=== PATIENT | female | born 1980 | race Caucasian/White ===

== ENCOUNTER 2019-01-08 23:06 | Emergency (ER) | payer MEDICAID ==
[~2019-01-08] VITALS: Ht 160 cm; Wt 63.5 kg
[~2019-01-08 23:06] MED LIST: ALBU8HFA2 INH; AMOCLA875 PO; AMOX500 PO; CARB200; CARB200 PO; CEPH500 PO; CIPR500 PO; CITA20; CLIN150 PO; CYCL10 PO; DIAZ5 PO; ERYT.5TO OU; HYDACE5; HYDACE5 PO; IBUP600 PO; KETO10 PO; LEVFLO500 PO; NAPR500 PO; NAPR550 PO; PENVK250 PO; PENVK500 PO; PHENA200 PO; PREG50; RXCEPH500 PO; RXCLIN PO; RXHYDACE PO; RXNAPNA550 PO; RXPENVK250 PO; RXTRAM50 PO; TRAM50 PO; TRAZ50 PO
== END 2019-01-09 02:52 | disposition home or self-care (01) ==
LOC: ER 23:06
DX: S51.812A Laceration without foreign body of left forearm, initial encounter (principal); F17.210 Nicotine dependence, cigarettes, uncomplicated; Z88.2 Allergy status to sulfonamides; W26.9XXA Contact with unspecified sharp object(s), initial encounter
CPT/HCPCS: 12002; 99282-25